=== PATIENT | male | born 1985 | race Asian ===

== ENCOUNTER 2023-09-27 03:27 | Emergency (ER) | payer SELFPAY ==
[~2023-09-27] VITALS: Ht 188 cm; Wt 59.0 kg
[2023-09-27 03:31] VITALS: BP_SYST 125; PULSE 77; RESP 20; TEMP 99.1; O2SAT 100
[2023-09-27 04:03] VITALS: BP_SYST 125; PULSE 77; RESP 20; TEMP 99.1; O2SAT 100
== END 2023-09-27 04:03 ==
LOC: SED 03:27
DX: Z02.89 Encounter for other administrative examinations (principal); M79.671 Pain in right foot; M79.642 Pain in left hand; Z79.899 Other long term (current) drug therapy
CPT/HCPCS: 99284